=== PATIENT | male | born 1930 | race Caucasian/White ===

== ENCOUNTER 2017-04-09 10:33 | Inpatient (IN) | payer MEDICARE, BC ==
[2017-04-09] MEDS ORDERED: Furosemide 40 MG/4 ML VIAL IVPUSH ONE (12:00)
[2017-04-09] MEDS: Sodium Chloride 0.9% 10 ML Syringe FLUSH PRN ×2 (12:25→20:17)
[2017-04-09 12:54] LABS: CHLORIDE,CL 94 mmol/L (98-107); SODIUM,NA 135 mmol/L (136-145)
[2017-04-09] MEDS ORDERED: Acetaminophen 325 MG Tab PO PRN (14:38)
[2017-04-09] MEDS ORDERED: Potassium Chloride 10 MEQ Tab.ER PO SCH (14:45)
[2017-04-09] MEDS: Furosemide 20 MG/2 ML VIAL IVPUSH SCH (16:13)
[2017-04-09] MEDS: Potassium Chloride 20 MEQ Tab.ER PO SCH (16:13)
[2017-04-09] MEDS ORDERED: Warfarin 2.5 MG Tab PO SCH (20:00)
[2017-04-09] MEDS: Zolpidem 5 MG Tab PO SCH (20:13)
[2017-04-09] MEDS: LORazepam 0.5 MG Tab PO SCH (20:13)
--- NOTE | 2017-04-09 22:00 | PCM.HP ---
H&P History of Present Illness - General Date of Service: 04/09/17 Admit Problem/Dx: Admission Diagnosis/Problem Admission Diagnosis/Problem Congestive heart failure Source of Information: Patient, Family History Limitations: Reports: No Limitations - History of Present Illness Onset of Symptoms: Reports: Gradual Duration of Symptoms: Reports: Day(s): Location: Reports: Other (scrotum ) Associated Symptoms: Reports: Shortness of Breath Other HPI/Comments: 86 yo who present to the clinic today with his brother for follow up and on fluid retention and now with a 1 week hx of increased scrotal swelling. Was seen by myself 1 month ago for leg swelling and CHF. BNP at that time was 744 at [place] he has a. fib and had been initiated on Digoxin for a. fib, he has also been on Atenolol doses for years. Lasix dose was 20 mg BID. Had been seen by Carolee Kuhn earlier this spring and treated for cellulitis. I felt he was having more venous stasis issues and I referred him back to vascular surgery but he has not seen them yet. [facility] increased lasix up to 40 mg BID. He feels the leg swelling is better and he is also using support stockings now but he is still SOB with activity. He did fall also last Wednesday on 04/28 [facility] did admit had at least 1 drink but really just sort of stepped off the curb. He didn't go in for stitches has a cut on the right elbow that home health has been dressing. He is weaker and is using a walker which is new for him. He has a pacemaker and his last echo showed and EF 65 % back in 2013 there were no major valve problems. He is on coumadin. He did hit his head and scraped his left eyebrow with the fall. He has not had headaches or been confused. He did run out of Digoxin on 04/04 and was waiting for his appt today to fill it. He has a hx of prostate cancer with prostatectomy in 2001 no PSA monitoring has been done lately Hx from 03/11 visit An 86-year-old seen today for followup on leg swelling. The patient has been doctoring since February 19 at which point he was diagnosed with cellulitis. He was given Bactrim. He returned on the . I felt it was more venous insufficiency. His Lasix was increased to 20 mg twice daily at that point. He was tried on hydrocortisone cream and then when he saw me on the I continued the increased Lasix. His heart rate was fast so I added digoxin. We put him on triamcinolone cream. He has been using it for a week. He states his legs are still red, but there is no pain. His feet do her with some tingling and burning. He believes that started when the swelling started. He does not have diabetes. He does have prediabetes. He does drink alcohol, like 3 per day, but has been limiting it on my advice due to lower sodiums - Related Data Allergies/Adverse Reactions: Allergies Allergy/AdvReac Type Severity Reaction Status Date / Time naproxen sodium [From Aleve] Allergy Other Verified 08/22/16 10:46 Penicillins Allergy Cannot Verified 08/22/16 10:46 Remember Home Medications: Home Meds Atenolol 100 mg PO DAILY 12/24/13 [History] Furosemide [Lasix] 40 mg PO BID 12/24/13 [History] Zolpidem [Ambien] 10 mg PO BEDTIME 12/24/13 [History] Acetaminophen [Tylenol] 2 tab PO Q6H PRN 07/17/15 [History] Warfarin [Coumadin] 5 mg PO SuTuThSa@20 08/22/16 [History] Digoxin 125 mcg PO DAILY 04/09/17 [History] LORazepam [LORazepam] 0.25 mg PO BEDTIME 04/09/17 [History] Potassium Chloride 20 meq PO DAILY 04/09/17 [History] Warfarin [Coumadin] 2.5 mg PO MoWeFr@20 04/09/17 [History] Past Medical History HEENT History: Reports: Cataract, Hard of Hearing Other HEENT History: middle ear disorder, Cardiovascular History: Reports: Afib, Hypertension, Pacemaker Other Cardiovascular History: hyponatremia, fatigue, Gastrointestinal History: Reports: Diverticulosis, Other (See Below) Other Gastrointestinal History: esophageal stricture, dysphagia, diverticulosis, Genitourinary History: Reports: Prostate Disorder Other Genitourinary History: Prostate Cancer Psychiatric History: Reports: Other (See Below) Other Psychiatric History: insomnia, Endocrine/Metabolic History: Reports: Other (See Below) Other Endocrine/Metabolic History: prediabetes, Oncologic (Cancer) History: Reports: Prostate Dermatologic History: Reports: Urticaria, Other (See Below) Other Dermatologic History: VERY DRY SKIN - Past Surgical History Head Surgeries/Procedures: Reports: None HEENT Surgical History: Reports: Cataract Surgery Cardiovascular Surgical History: Reports: Pacer Other Cardiovascular Surgeries/Procedures: PACEMAKER Respiratory Surgical History: Reports: None Male Surgical History: Reports: Prostatectomy Endocrine Surgical History: Reports: None Other Oncologic Surgeries/Procedures: prostate removed Social & Family History - Family History Dermatologic: Reports: Other (See Below) (his brother has had lots of issues with skin cancer) - Tobacco Use Smoking Status *Q: Former Smoker Years of Tobacco use: 20 Used Tobacco, but Quit: Yes Month Tobacco Last Used: 12 Tobacco Use Comment: Stated he quit smoking around 50 years ago. Second Hand Smoke Exposure: No - Caffeine Use Caffeine Use: Reports: Coffee, Soda - Alcohol Use Days Per Week of Alcohol Use: 7 Number of Drinks Per Day: 1 Total Drinks Per Week: 7 Date of Last Drink: 04/08/17 - Recreational Drug Use Recreational Drug Use: No Drug Use in Last 12 Months: No H&P Review of Systems - Review of Systems: Review Of Systems: See Below General: Reports: Weakness, Weight Gain (he gained like 20 lbs in 6 months) HEENT: Reports: No Symptoms Pulmonary: Reports: Shortness of Breath. Denies: Wheezing, Pleuritic Chest Pain , Cough Cardiovascular: Reports: Dyspnea on Exertion, Orthopnea, Edema. Denies: Chest Pain, Palpitations, Lightheadedness, Syncope Gastrointestinal: Reports: Decreased Appetite, Distension. Denies: Abdominal Pain, Black Stool, Constipation, Diarrhea Genitourinary: Reports: Incontinence, Other (it is hard for him to urinate due to scrotal swelling). Denies: Dysuria, Frequency, Burning, Urgency, Retention Musculoskeletal: Reports: No Symptoms. Denies: Back Pain Skin: Reports: Rash (legs have been red with stasis changes but they are improving ) Psychiatric: Reports: Anxiety Neurological: Reports: Tingling, Difficulty Walking. Denies: Confusion, Dizziness, Headache Hematologic/Lymphatic: Reports: Easy Bleeding (he is on coumadin ) Immunologic: Reports: No Symptoms Exam - Exam Exam: See Below - Vital Signs Vital Signs: Last Vital Signs Temp 98.6 F 04/09/17 16:58 Pulse 89 04/09/17 16:58 Resp 20 04/09/17 16:58 BP 126/71 04/09/17 16:58 Pulse Ox 93 L 04/09/17 16:58 Weight: 97.795 kg - Exam General: Alert, Oriented, Cooperative HEENT: Conjunctiva Clear, EACs Clear, EOMI, Hearing Intact, Posterior Pharynx Clear, Pupils Equal Neck: Supple, Trachea Midline, +2 Carotid Pulse wo Bruit. No: JVD, Thyromegaly Lungs: Normal Respiratory Effort, Decreased Breath Sounds (noted to both bases ) . No: Crackles, Rales, Rhonchi, Wheezing Cardiovascular: Irregular Rhythm, Tachycardia. No: Bradycardia, Systolic Murmur Abdomen: Normal Bowel Sounds, Distention, Other (I did not appreciate any abdominal wall edema or sacral edema, no shifting dullness to suggest significant ascites ). No: Organomegaly, Guarding, Rigidity, Rebound, Tenderness (Male) Exam: Scrotal Swelling, Scrotum Tenderness (L), Scrotum Tenderness (R ) (tenderness to palpation but no significant pain, redness but no warmth ), Other (It was difficult to find the penile meatus and when found there was just a small trickle of urine noted). No: Circumcised, Suprapubic Fullness, Testicular Mass, Urethral Discharge Extremities: Edema (1 + to the mid [place] with support stockings in place) Skin: Warm, Dry, Intact, Rash (stasis changes to both legs ) Neurological: Cranial Nerves Intact, Normal Gait (he did use a walker but was walking ok with it), Normal Speech Neuro Extensive - Mental Status: Alert, Oriented x3, Normal Mood/Affect, Normal Cognition, Memory Intact Psychiatric: Alert, Normal Affect, Normal Mood - Patient Data Lab Results Last 24 hrs: Laboratory Results - last 24 hr 04/09/17 04/09/17 04/09/17 Range/Units 12:15 12:15 12:15 WBC 6.3 (4.0-10.0) x10^3/uL RBC 4.28 L (4.5-6.0) x10^6/uL Hgb 12.6 L (14.0-18.0) g/dL Hct 38.5 L (40.0-52.0) % MCV 90.0 (78.0-93.0) fL MCH 29.4 (26.0-32.0) pg MCHC 32.7 (32.0-36.0) g/dL RDW Coeff of Coy 15.7 H (10.0-15.0) % Plt Count 159 (130-400) x10^3/uL Neut % (Auto) 69.8 (50.0-80.0) % Lymph % (Auto) 8.9 L (25.0-50.0) % [place] % (Auto) 18.0 H (2.0-11.0) % Eos % (Auto) 2.5 (0.0-4.0) % Baso % (Auto) 0.8 (0.2-1.2) % PT (10.0-12.8) SEC INR (2.0-3.5) Sodium 135 L (136-145) mmol/L Potassium 3.4 L (3.5-5.1) mmol/L Chloride 94 L (98-107) mmol/L Carbon Dioxide 38 H (21-32) mmol/L BUN 11 (7-18) mg/dL Creatinine 1.0 (0.70-1.30) mg/dL Est Cr Clr Drug Dosing 48.66 mL/min Estimated GFR (MDRD) > 60 Glucose 110 H (74-106) mg/dL Calcium 8.8 (8.5-10.1) mg/dL Magnesium (1.8-2.4) mg/dL Troponin I < 0.017 (<=0.056) ng/mL B-Natriuretic Peptide 442 (<=450) pg/mL Albumin 3.1 L (3.4-5.0) g/dL 04/09/17 04/09/17 Range/Units 12:15 12:15 WBC (4.0-10.0) x10^3/uL RBC (4.5-6.0) x10^6/uL Hgb (14.0-18.0) g/dL Hct (40.0-52.0) % MCV (78.0-93.0) fL MCH (26.0-32.0) pg MCHC (32.0-36.0) g/dL RDW Coeff of Coy (10.0-15.0) % Plt Count (130-400) x10^3/uL Neut % (Auto) (50.0-80.0) % Lymph % (Auto) (25.0-50.0) % [place] % (Auto) (2.0-11.0) % Eos % (Auto) (0.0-4.0) % Baso % (Auto) (0.2-1.2) % PT 29.2 H (10.0-12.8) SEC INR 2.6 (2.0-3.5) Sodium (136-145) mmol/L Potassium (3.5-5.1) mmol/L Chloride (98-107) mmol/L Carbon Dioxide (21-32) mmol/L BUN (7-18) mg/dL Creatinine (0.70-1.30) mg/dL Est Cr Clr Drug Dosing mL/min Estimated GFR (MDRD) Glucose (74-106) mg/dL Calcium (8.5-10.1) mg/dL Magnesium 1.9 (1.8-2.4) mg/dL Troponin I (<=0.056) ng/mL B-Natriuretic Peptide (<=450) pg/mL Albumin (3.4-5.0) g/dL Result Diagrams: 04/09/17 12:15 04/09/17 12:15 Imaging Impressions Last 24 hrs: CXR showed small bilateral pleural effusion but no pulmonary edema or infiltrates. EKG INTERPRETATION EKG Date: 04/09/17 Rhythm: A-Fib Rate (Beats/Min): 81 Comparison: Change From Previous EKG (he was in a sinus rhythm before) *Q Meaningful Use (ADM) - VTE *Q VTE Criteria *Q: VTE Mechanical Contraindications *Q: At Risk for Falls - VTE Risk Assess *Q Each Risk Factor Represents 3 Points: Age 75 Years or Greater Total Score 3 Point Risk Factors: 3 - Stroke *Q Stroke Criteria *Q: - AMI *Q AMI Criteria *Q: - Problem List (1) Afib, Atrial fibrillation SNOMED Code(s): 99070173 ICD Code: I48.91 - UNSPECIFIED ATRIAL FIBRILLATION Status: Chronic Priority: High Current Visit: Yes (2) Diastolic CHF, acute on chronic SNOMED Code(s): 728667757, 285272354 ICD Code: I50.33 - ACUTE ON CHRONIC DIASTOLIC (CONGESTIVE) HEART FAILURE Status: Acute Priority: High Current Visit: Yes (3) Scrotal edema SNOMED Code(s): 41862346 ICD Code: N50.89 - OTHER SPECIFIED DISORDERS OF THE MALE GENITAL ORGANS Status: Acute Priority: High Current Visit: Yes (4) History of prostate cancer SNOMED Code(s): 311165563 ICD Code: Z85.46 - PERSONAL HISTORY OF MALIGNANT NEOPLASM OF PROSTATE Status: Chronic Priority: Medium Current Visit: No (5) Anticoagulated on Coumadin SNOMED Code(s): 38861842 ICD Code: Z51.81 - ENCOUNTER FOR THERAPEUTIC DRUG LEVEL MONITORING; Z79.01 - RESIDENTIAL (CURRENT) USE OF ANTICOAGULANTS Status: Chronic Priority: Medium Current Visit: Yes (6) Hypokalemia SNOMED Code(s): 29329049 ICD Code: E87.6 - HYPOKALEMIA Status: Acute Priority: High Current Visit: Yes (7) Prediabetes SNOMED Code(s): 891066821 ICD Code: R73.03 - PREDIABETES Status: Chronic Priority: Medium Current Visit: Yes (8) Essential hypertension SNOMED Code(s): 61552219 ICD Code: I10 - ESSENTIAL (PRIMARY) HYPERTENSION Status: Chronic Priority : Medium Current Visit: Yes Problem List Initiated/Reviewed/Updated: Yes Orders Last 24hrs: Active Orders 24 hr Category Date Time Status Patient Status [ADT] Routine ADT 04/09/17 10:45 Active Antiembolic Devices [RC] Care 04/09/17 11:58 Active Antiembolic Devices [RC] PER UNIT ROUTINE Care 04/09/17 16:52 Active Cardiac Monitoring [RC] 06,10,14,18,22,02 Care 04/09/17 11:57 Active Height and Weight [RC] Care 04/09/17 11:56 Active Insert Nolasco Catheter [Insert Urinary Catheter] [OM.PC] Care 04/09/17 12:15 Ordered Q24H Intake and Output [RC] , Care 04/09/17 11:57 Active Oxygen Therapy [RC] Care 04/09/17 11:51 Active Up With Assistance [RC] , Care 04/09/17 11:56 Active Urinary Catheter Assessment [RC] .PRN Care 04/09/17 12:05 Active VTE/DVT Education [RC] .PRN Care 04/09/17 11:51 Active Vital Signs [RC] 06,10,14,18,22,02 Care 04/09/17 11:51 Active OT Evaluation and Treatment [CONS] Routine Cons 04/09/17 12:03 Active PT Evaluation and Treatment [CONS] Routine Cons 04/09/17 11:51 Active 2 Gram Sodium Diet [DIET] Diet 04/09/17 Lunch Active CXR [Chest 2V] [CR] Routine Exams 04/09/17 11:59 Taken BASIC METABOLIC PANEL,BMP [CHEM] AM Lab 04/10/17 05:15 Ordered CBC WITH AUTO DIFF [HEME] AM Lab 04/10/17 05:15 Ordered INR,PT,PROTHROMBIN TIME [COAG] Routine Lab 04/10/17 07:00 Ordered MG [MAGNESIUM] [CHEM] Routine Lab 04/10/17 07:00 Ordered Acetaminophen [Tylenol] Med 04/09/17 14:38 Active 650 mg PO Q6H PRN Digoxin [Lanoxin] Med 04/10/17 08:00 Active 125 mcg PO DAILY Furosemide [Lasix] Med 04/09/17 16:00 Active 20 mg IVPUSH BIDDIURETIC LORazepam [Ativan] Med 04/09/17 20:00 Active 0.25 mg PO BEDTIME Potassium Chloride [Klor-Con M20] Med 04/09/17 15:30 Active 20 meq PO DAILY Sodium Chloride 0.9% [Saline Flush] Med 04/09/17 11:56 Active 10 ml FLUSH ASDIRECTED PRN Warfarin [Coumadin] Med 04/09/17 20:00 Active 2.5 mg PO MoWeFr@20 Warfarin [Coumadin] Med 04/10/17 20:00 Active 5 mg PO SuTuThSa@20 Zolpidem [Ambien] Med 04/09/17 20:00 Active 10 mg PO BEDTIME Antiembolic Hose [OM.PC] Per Unit Routine Oth 04/09/17 11:57 Ordered Peripheral IV Insertion Adult [OM.PC] Routine Oth 04/09/17 11:56 Ordered Sequential Compression Device [OM.PC] Routine Oth 04/09/17 16:52 Ordered Resuscitation Status Routine Resus Stat 04/09/17 11:51 Ordered Medication Orders Acetaminophen (Tylenol) 650 mg PO Q6H PRN PRN Reason: Pain Digoxin (Lanoxin) 125 mcg PO DAILY [facility] Furosemide (Lasix) 20 mg IVPUSH BIDDIURETIC [facility] Last Admin: 04/09/17 16:13 Dose: 20 mg Lorazepam (Ativan) 0.25 mg PO BEDTIME [facility] Last Admin: 04/09/17 20:13 Dose: 0.25 mg Potassium Chloride (Klor-Con M20) 20 meq PO DAILY [facility] Last Admin: 04/09/17 16:13 Dose: 20 meq Sodium Chloride (Saline Flush) 10 ml FLUSH ASDIRECTED PRN PRN Reason: Keep Vein Open Last Admin: 04/09/17 20:17 Dose: 10 ml Admin: 04/09/17 12:25 Dose: 10 ml Warfarin Sodium (Coumadin) 2.5 mg PO MoWeFr@20 [facility] Last Admin: 04/09/17 20:13 Dose: 2.5 mg Warfarin Sodium (Coumadin) 5 mg PO SuTuThSa@20 [facility] Zolpidem Tartrate (Ambien) 10 mg PO BEDTIME [facility] Last Admin: 04/09/17 20:13 Dose: 10 mg Assessment/Plan Comment:: 1. Acute on Chronic diastolic CHF exacerbation, know EF 65 % in 2013. Patient has already improved his BNP with outpatient diuresis however at this point he is still SOB and has significant scrotal edema 2. Atrial fibrillation 3. Mild hypokalemia 4. Scrotal edema 5. Mild urinary retention less than 200 ml 6. Venous insufficiency (will follow up with vascular surgery outpatient) 7. Anxiety 8. Insomnia 9. Regular alcohol use 10. Probably depression related to worsening health status 11. Essential hypertension 12. Remote hx of prostate cancer 14. Hyponatremia mild Plan: Admit to acute cares with IV diuresis 40 mg given IV x 1 (patient did not take oral lasix this AM) 20 mg IV BID scheduled Repeat labs in AM, increase K supplements to 20 BID Some PVCs noted on tele we will check mag level Stop Atenolol and trial of Toprol 50 mg daily Consider stopping digoxin if rate control is ok, could go up on the Toprol as BNP not significantly elevated Outpatient echo ordered Consider abdominal imaging to look for obstructive causes of scrotal edema if edema doesn't improve with diuresis Attempt to place nolasco once swelling improves for strict I and O's and management of incontinence Monitor with Tele Code level 1 He is therapeutic on coumadin for DVT prophylaxis
[2017-04-10] MEDS: Digoxin 125 MCG Tab PO SCH (07:59)
[2017-04-10] MEDS: Potassium Chloride 20 MEQ Tab.ER PO SCH (07:59)
[2017-04-10] MEDS: Metoprolol Succinate 50 MG Tab.ER PO SCH (07:59)
[2017-04-10] MEDS: Furosemide 20 MG/2 ML VIAL IVPUSH SCH (08:00)
[2017-04-10 08:05] LABS: CHLORIDE,CL 97 mmol/L (98-107); SODIUM,NA 138 mmol/L (136-145)
[2017-04-10] MEDS: Sodium Chloride 0.9% 10 ML Syringe FLUSH PRN (08:08)
--- NOTE | 2017-04-10 08:33 | PCM.PN ---
- General Info Date of Service: 04/10/17 Subjective Update: Patient states he is overall feeling much better today. He denies any shortness of breath and did not develop any chest pain, cough, fever, or chills overnight. He has not been able to see his scrotum but nursing staff note this is significantly improved and is about 1/2 the size it was yesterday. - Review of Systems General: Reports: No Symptoms HEENT: Reports: no symptoms Pulmonary: Reports: no symptoms Cardiovascular: Reports: No Symptoms Gastrointestinal: Reports: No symptoms Genitourinary: Reports: no symptoms Musculoskeletal: Reports: no symptoms Skin: Reports: no symptoms - Patient Data Vitals - most recent: Last Vital Signs Temp 36.6 C 04/10/17 06:00 Pulse 71 04/10/17 07:59 Resp 18 04/10/17 06:00 BP 151/86 H 04/10/17 07:59 Pulse Ox 93 L 04/10/17 06:00 Weight - most recent: 97.795 kg I&O - last 24 hours: Intake & Output 04/09/17 04/10/17 04/10/17 22:59 06:59 14:59 Output Total 1350 300 Balance -1350 -300 Lab Results last 24 hrs: Laboratory Results - last 24 hr 04/09/17 04/09/17 04/09/17 Range/Units 12:15 12:15 12:15 WBC 6.3 (4.0-10.0) x10^3/uL RBC 4.28 L (4.5-6.0) x10^6/uL Hgb 12.6 L (14.0-18.0) g/dL Hct 38.5 L (40.0-52.0) % MCV 90.0 (78.0-93.0) fL MCH 29.4 (26.0-32.0) pg MCHC 32.7 (32.0-36.0) g/dL RDW Coeff of Coy 15.7 H (10.0-15.0) % Plt Count 159 (130-400) x10^3/uL Neut % (Auto) 69.8 (50.0-80.0) % Lymph % (Auto) 8.9 L (25.0-50.0) % [place] % (Auto) 18.0 H (2.0-11.0) % Eos % (Auto) 2.5 (0.0-4.0) % Baso % (Auto) 0.8 (0.2-1.2) % PT (10.0-12.8) SEC INR (2.0-3.5) Sodium 135 L (136-145) mmol/L Potassium 3.4 L (3.5-5.1) mmol/L Chloride 94 L (98-107) mmol/L Carbon Dioxide 38 H (21-32) mmol/L BUN 11 (7-18) mg/dL Creatinine 1.0 (0.70-1.30) mg/dL Est Cr Clr Drug Dosing 48.66 mL/min Estimated GFR (MDRD) > 60 Glucose 110 H (74-106) mg/dL Calcium 8.8 (8.5-10.1) mg/dL Magnesium (1.8-2.4) mg/dL Troponin I < 0.017 (<=0.056) ng/mL B-Natriuretic Peptide 442 (<=450) pg/mL Albumin 3.1 L (3.4-5.0) g/dL 04/09/17 04/09/17 04/10/17 Range/Units 12:15 12:15 07:17 WBC (4.0-10.0) x10^3/uL RBC (4.5-6.0) x10^6/uL Hgb (14.0-18.0) g/dL Hct (40.0-52.0) % MCV (78.0-93.0) fL MCH (26.0-32.0) pg MCHC (32.0-36.0) g/dL RDW Coeff of Coy (10.0-15.0) % Plt Count (130-400) x10^3/uL Neut % (Auto) (50.0-80.0) % Lymph % (Auto) (25.0-50.0) % [place] % (Auto) (2.0-11.0) % Eos % (Auto) (0.0-4.0) % Baso % (Auto) (0.2-1.2) % PT 29.2 H (10.0-12.8) SEC INR 2.6 (2.0-3.5) Sodium 138 (136-145) mmol/L Potassium 3.3 L (3.5-5.1) mmol/L Chloride 97 L (98-107) mmol/L Carbon Dioxide 39 H (21-32) mmol/L BUN 10 (7-18) mg/dL Creatinine 0.9 (0.70-1.30) mg/dL Est Cr Clr Drug Dosing 54.06 mL/min Estimated GFR (MDRD) > 60 Glucose 97 (74-106) mg/dL Calcium 9.1 (8.5-10.1) mg/dL Magnesium 1.9 (1.8-2.4) mg/dL Troponin I (<=0.056) ng/mL B-Natriuretic Peptide (<=450) pg/mL Albumin (3.4-5.0) g/dL /05/20 Range/Units 07:17 WBC (4.0-10.0) x10^3/uL RBC (4.5-6.0) x10^6/uL Hgb (14.0-18.0) g/dL Hct (40.0-52.0) % MCV (78.0-93.0) fL MCH (26.0-32.0) pg MCHC (32.0-36.0) g/dL RDW Coeff of Coy (10.0-15.0) % Plt Count (130-400) x10^3/uL Neut % (Auto) (50.0-80.0) % Lymph % (Auto) (25.0-50.0) % [place] % (Auto) (2.0-11.0) % Eos % (Auto) (0.0-4.0) % Baso % (Auto) (0.2-1.2) % PT (10.0-12.8) SEC INR (2.0-3.5) Sodium (136-145) mmol/L Potassium (3.5-5.1) mmol/L Chloride (98-107) mmol/L Carbon Dioxide (21-32) mmol/L BUN (7-18) mg/dL Creatinine (0.70-1.30) mg/dL Est Cr Clr Drug Dosing mL/min Estimated GFR (MDRD) Glucose (74-106) mg/dL Calcium (8.5-10.1) mg/dL Magnesium 2.1 (1.8-2.4) mg/dL Troponin I (<=0.056) ng/mL B-Natriuretic Peptide (<=450) pg/mL Albumin (3.4-5.0) g/dL Med Orders - Current: Current Medications Acetaminophen (Tylenol) 650 mg PO Q6H PRN PRN Reason: Pain Digoxin (Lanoxin) 125 mcg PO DAILY [facility] Last Admin: 04/10/17 07:59 Dose: 125 mcg Furosemide (Lasix) 40 mg PO BIDDIURETIC [facility] Lorazepam (Ativan) 0.25 mg PO BEDTIME [facility] Last Admin: 04/09/17 20:13 Dose: 0.25 mg Metoprolol Succinate (Toprol Xl) 50 mg PO DAILY [facility] Last Admin: 04/10/17 07:59 Dose: 50 mg Potassium Chloride (Klor-Con M20) 20 meq PO DAILY [facility] Last Admin: 04/10/17 07:59 Dose: 20 meq Sodium Chloride (Saline Flush) 10 ml FLUSH ASDIRECTED PRN PRN Reason: Keep Vein Open Last Admin: 04/10/17 08:08 Dose: 10 ml Warfarin Sodium (Coumadin) 2.5 mg PO MoWeFr@20 [facility] Last Admin: 04/09/17 20:13 Dose: 2.5 mg Warfarin Sodium (Coumadin) 5 mg PO SuTuThSa@20 [facility] Zolpidem Tartrate (Ambien) 10 mg PO BEDTIME [facility] Last Admin: 04/09/17 20:13 Dose: 10 mg Discontinued Medications Furosemide (Lasix) 40 mg IVPUSH NOW ONE Stop: 04/09/17 12:01 Last Admin: 04/09/17 12:24 Dose: 40 mg Furosemide (Lasix) 20 mg IVPUSH BIDDIURETIC [facility] Last Admin: 04/10/17 08:00 Dose: 20 mg - Exam General: alert, cooperative, no acute distress HEENT: Mucous membr. moist/pink Neck: supple, no thyromegaly. No: lymphadenopathy Lungs: Clear to auscultation (besides the decrease in the lower lobes), Normal respiratory effort, Decreased breath sounds (at the bases bilaterally) Cardiovascular: Regular Rate, No Murmurs, Irregular Rhythm Abdomen: bowel sounds present, soft, no tenderness, no distension (Male) Exam: Scrotal Swelling (still has some today but by nursing report is much improved) Extremities: normal pulses, edema (1+ bilaterally) Skin: warm, dry, intact - Problem List & Annotations (1) Diastolic CHF, acute on chronic SNOMED Code(s): 854972871, 633859986 Code(s): I50.33 - ACUTE ON CHRONIC DIASTOLIC (CONGESTIVE) HEART FAILURE Status: Acute Priority: High Current Visit: Yes Annotation/Comment:: - Doing well this am. - He will get an IV dose of lasix this morning, then I will transition him back to his 40 mg PO BID. - He has not required any oxygen and respiratory status is stable. (2) Hypokalemia SNOMED Code(s): 28105586 Code(s): E87.6 - HYPOKALEMIA Status: Chronic Priority: High Current Visit: Yes Annotation/Comment:: - This is acute on chronic. - Will give additional PO dosing today and recheck tomorrow. (3) Scrotal edema SNOMED Code(s): 31563645 Code(s): N50.89 - OTHER SPECIFIED DISORDERS OF THE MALE GENITAL ORGANS Status: Acute Priority: High Current Visit: Yes Annotation/Comment:: - Also improved but not resolved. - No further work-up at this time. - Will recheck tomorrow. (4) Afib, Atrial fibrillation SNOMED Code(s): 39151815 Code(s): I48.91 - UNSPECIFIED ATRIAL FIBRILLATION Status: Chronic Priority: High Current Visit: Yes Annotation/Comment:: - Rates overall controlled ok. - Continue digoxin and toprol. (5) Anticoagulated on Coumadin SNOMED Code(s): 95985937 Code(s): Z51.81 - ENCOUNTER FOR THERAPEUTIC DRUG LEVEL MONITORING; Z79.01 - PRISON (CURRENT) USE OF ANTICOAGULANTS Status: Chronic Priority: Medium Current Visit: Yes Annotation/Comment:: - INR pending this morning. - Warfarin continued at home doses. - Problem List Review Problem List Initiated/Reviewed/Updated: Yes - My Orders Last 24 Hours: My Active Orders 04/10/17 16:00 Furosemide [Lasix] 40 mg PO BIDDIURETIC 04/11/17 05:11 BMP [BASIC METABOLIC PANEL,BMP] [CHEM] Routine - Assessment Assessment:: 86 yo male admitted for diuresis due to difficulty achieving this as an outpatient. He is doing much better this am. - Plan Plan:: Patient will remain on acute cares today. I do anticipate that he will be able to be dismissed tomorrow. Will transition from IV to PO lasix today. Otherwise, see details under problems listed above. Code level 1. He is therapeutic on coumadin for DVT prophylaxis.
[2017-04-10] MEDS: Potassium Chloride 10 MEQ Tab.ER PO SCH ×2 (09:56→18:01)
[2017-04-10] MEDS: Furosemide 40 MG Tab PO SCH (15:58)
[2017-04-10] MEDS ORDERED: Warfarin 5 MG Tab PO SCH (20:00)
[2017-04-10] MEDS: Zolpidem 5 MG Tab PO SCH (20:11)
[2017-04-10] MEDS: LORazepam 0.5 MG Tab PO SCH (20:11)
[2017-04-11 07:59] LABS: CHLORIDE,CL 99 mmol/L (98-107); SODIUM,NA 139 mmol/L (136-145)
[2017-04-11] MEDS: Potassium Chloride 20 MEQ Tab.ER PO SCH (09:38)
[2017-04-11] MEDS: Metoprolol Succinate 50 MG Tab.ER PO SCH (09:39)
[2017-04-11] MEDS: Furosemide 40 MG Tab PO SCH (09:39)
[2017-04-11] MEDS: Digoxin 125 MCG Tab PO SCH (09:40)
--- NOTE | 2017-04-11 09:45 | PCM.DCSUM1 ---
Discharge Summary - Hospital Course Brief History: Mr. Chaney is an 86 yo male who was admitted for clinic for severe symptomatic scrotal edema. - Discharge Data Discharge Date: 04/11/17 Discharge Disposition: Home, Self-Care 01 Condition: Good - Discharge Diagnosis/Problem(s) (1) Diastolic CHF, acute on chronic SNOMED Code(s): 591743524, 305544082 ICD Code: I50.33 - ACUTE ON CHRONIC DIASTOLIC (CONGESTIVE) HEART FAILURE Status: Acute Priority: High Current Visit: Yes Problem Details: His CHF was initially managed with IV lasix. After improvement in symptoms, he was transitioned back to PO lasix yesterday. He has done well since then. I/O balance still negative and his weight is down further. He has not required any oxygen and respiratory status is stable. (2) Hypokalemia SNOMED Code(s): 18847184 ICD Code: E87.6 - HYPOKALEMIA Status: Chronic Priority: High Current Visit: Yes Problem Details: This is acute on chronic. It has been overall stable since hospital admission. Will plan to d/c him on higher PO dosing and recheck in hospital follow-up. (3) Scrotal edema SNOMED Code(s): 87368039 ICD Code: N50.89 - OTHER SPECIFIED DISORDERS OF THE MALE GENITAL ORGANS Status: Acute Priority: High Current Visit: Yes Problem Details: Stable from yesterday. He remains asymptomatic. No further work-up at this time. (4) Afib, Atrial fibrillation SNOMED Code(s): 18785625 ICD Code: I48.91 - UNSPECIFIED ATRIAL FIBRILLATION Status: Chronic Priority: High Current Visit: Yes Problem Details: Rates overall controlled. His digoxin and toprol were continued throughout his hospitalization without any incident. (5) Anticoagulated on Coumadin SNOMED Code(s): 87839056 ICD Code: Z51.81 - ENCOUNTER FOR THERAPEUTIC DRUG LEVEL MONITORING; Z79.01 - NURSING HOME (CURRENT) USE OF ANTICOAGULANTS Status: Chronic Priority: Medium Current Visit: Yes Problem Details: INR was not done today. He has been on his home warfarin dosing. He likely should have an INR tomorrow, 04/12. - Patient Summary/Data Operative Procedure(s) Performed: none Complications: none Consults: Consultations 04/09/17 11:51 PT Evaluation and Treatment [CONS] Routine 04/09/17 12:03 OT Evaluation and Treatment [CONS] Routine Labs Pending at D/C: BMP at follow-up Recommended Follow-up Testing/Procedures: none Planned Operative Procedure(s) after DC: none Hospital Course: See details under problems above. His symptoms rapidly improved with IV lasix and remained absent after transitioning to PO lasix. He is prepared for dismissal today. - Patient Instructions Diet: Heart Healthy Diet - Discharge Plan Home Medications: Home Meds Albuterol [Ventolin HFA] 2 puff PO Q6HR PRN 04/10/17 [History] Alendronate Sodium [Fosamax] 70 mg PO WEEKLY 04/10/17 [History] Budesonide/Formoterol [Symbicort 160-4.5 MCG] 2 puff PO BID 04/10/17 [History] Calcium Citrate/Vitamin D3 [Calcium Citrate + D] 1 tab PO BID 04/10/17 [History] Latanoprost [Xalatan 0.005% Ophth Soln] 1 drop EYEBOTH DAILY 04/10/17 [History] Montelukast [Singulair] 10 mg PO BEDTIME 04/10/17 [History] Vit C/Vit E Ac/Lut/Mineral 1 [Prosight with Lutein] 1 each PO DAILY 04/10/17 [ History] Acetaminophen [Tylenol] 650 mg PO Q6H PRN #0 tablet 04/11/17 [Rx] Digoxin [Lanoxin] 125 mcg PO DAILY tablet 04/11/17 [Rx] Furosemide [Lasix] 40 mg PO BIDDIURETIC tablet 04/11/17 [Rx] LORazepam [Ativan] 0.25 mg PO BEDTIME tablet 04/11/17 [Rx] Metoprolol Succinate [Toprol XL] 50 mg PO DAILY tab.er 04/11/17 [Rx] Potassium Chloride 20 meq PO BID #0 04/11/17 [Rx] Warfarin [Coumadin] 2.5 mg PO MoWeFr@20 tablet 04/11/17 [Rx] Warfarin [Coumadin] 5 mg PO SuTuThSa@20 tablet 04/11/17 [Rx] Zolpidem [Ambien] 10 mg PO BEDTIME tablet 04/11/17 [Rx] - Discharge Summary/Plan Comment DC Time >30 min.: No - General Info Date of Service: 04/11/17 Subjective Update: Patient is feeling well this am. No shortness of breath or chest pain. Scrotum remains much less edematous than on admission. He is prepared for dismissal today. - Review of Systems General: Reports: No Symptoms HEENT: Reports: no symptoms Pulmonary: Reports: no symptoms Cardiovascular: Reports: No Symptoms Gastrointestinal: Reports: No symptoms Genitourinary: Reports: no symptoms Musculoskeletal: Reports: no symptoms Skin: Reports: no symptoms - Patient Data Vitals - Most Recent: Last Vital Signs Temp 36.4 C 04/11/17 06:00 Pulse 85 04/11/17 06:00 Resp 14 04/11/17 06:00 BP 142/68 H 04/11/17 06:00 Pulse Ox 89 L 04/11/17 06:00 Weight - Most Recent: 96.343 kg I&O - Last 24 hours: Intake & Output 04/10/17 04/11/17 04/11/17 22:59 06:59 14:59 Intake Total 360 Output Total 1550 250 Balance -1190 -250 Lab Results - Last 24 hrs: Laboratory Results - last 24 hr 04/11/17 Range/Units 07:25 Sodium 139 (136-145) mmol/L Potassium 3.4 L (3.5-5.1) mmol/L Chloride 99 (98-107) mmol/L Carbon Dioxide 37 H (21-32) mmol/L BUN 8 (7-18) mg/dL Creatinine 0.8 (0.70-1.30) mg/dL Est Cr Clr Drug Dosing 60.82 mL/min Estimated GFR (MDRD) > 60 Glucose 98 (74-106) mg/dL Calcium 8.7 (8.5-10.1) mg/dL Med Orders - Current: Current Medications Acetaminophen (Tylenol) 650 mg PO Q6H PRN PRN Reason: Pain Digoxin (Lanoxin) 125 mcg PO DAILY [facility] Last Admin: 04/10/17 07:59 Dose: 125 mcg Furosemide (Lasix) 40 mg PO BIDDIURETIC [facility] Last Admin: 04/10/17 15:58 Dose: 40 mg Lorazepam (Ativan) 0.25 mg PO BEDTIME [facility] Last Admin: 04/10/17 20:11 Dose: 0.25 mg Metoprolol Succinate (Toprol Xl) 50 mg PO DAILY [facility] Last Admin: 04/10/17 07:59 Dose: 50 mg Potassium Chloride (Klor-Con M20) 20 meq PO DAILY [facility] Last Admin: 04/10/17 07:59 Dose: 20 meq Sodium Chloride (Saline Flush) 10 ml FLUSH ASDIRECTED PRN PRN Reason: Keep Vein Open Last Admin: 04/10/17 08:08 Dose: 10 ml Warfarin Sodium (Coumadin) 2.5 mg PO MoWeFr@20 [facility] Last Admin: 04/09/17 20:13 Dose: 2.5 mg Warfarin Sodium (Coumadin) 5 mg PO SuTuThSa@20 [facility] Last Admin: 04/10/17 20:11 Dose: 5 mg Zolpidem Tartrate (Ambien) 10 mg PO BEDTIME [facility] Last Admin: 04/10/17 20:11 Dose: 10 mg Discontinued Medications Furosemide (Lasix) 40 mg IVPUSH NOW ONE Stop: 04/09/17 12:01 Last Admin: 04/09/17 12:24 Dose: 40 mg Furosemide (Lasix) 20 mg IVPUSH BIDDIURETIC [facility] Last Admin: 04/10/17 08:00 Dose: 20 mg Potassium Chloride (Klor-Con 10) 40 meq PO BIDMEALS [facility] Stop: 04/10/17 18:01 Last Admin: 04/10/17 18:01 Dose: 40 meq - Exam General: Reports: alert, oriented, cooperative, no acute distress HEENT: Reports: Mucous membr. moist/pink Neck: Reports: supple, no thyromegaly. Denies: lymphadenopathy Lungs: Reports: Clear to auscultation, Normal respiratory effort Cardiovascular: Reports: Regular Rate, No Murmurs, Irregular Rhythm Abdomen: Reports: bowel sounds present, soft, no tenderness, no distension (Male) Exam: Scrotal Swelling (stable from yesterday) Extremities: Reports: normal pulses, edema (1+ bilaterally) Skin: Reports: warm, dry, intact *Q Meaningful Use (DIS) - VTE *Q VTE Criteria *Q: VTE Mechanical Contraindications *Q: At Risk for Falls - Stroke *Q Stroke Criteria *Q: - AMI *Q AMI Criteria *Q:
[2017-04-11 13:58] VITALS: BP 132/73
== END 2017-04-11 14:10 | disposition home or self-care (01) | DRG 729 ==
LOC: VM.MS 10:45
PROVIDERS: ADMIT Internal Medicine; ATTEND Internal Medicine
DX: N50.89 Other specified disorders of the male genital organs (principal); I50.33 Acute on chronic diastolic (congestive) heart failure; E87.1 Hypo-osmolality and hyponatremia; I11.0 Hypertensive heart disease with heart failure; I48.2 Chronic atrial fibrillation; E87.6 Hypokalemia; R33.9 Retention of urine, unspecified; I87.2 Venous insufficiency (chronic) (peripheral); Z85.46 Personal history of malignant neoplasm of prostate; Z51.81 Encounter for therapeutic drug level monitoring; Z79.899 Other long term (current) drug therapy; R73.03 Prediabetes; F41.9 Anxiety disorder, unspecified; G47.00 Insomnia, unspecified; Z72.89 Other problems related to lifestyle; F32.9 Major depressive disorder, single episode, unspecified; Z95.0 Presence of cardiac pacemaker; Z88.0 Allergy status to penicillin; Z88.6 Allergy status to analgesic agent; Z87.891 Personal history of nicotine dependence; H91.90 Unspecified hearing loss, unspecified ear
CPT/HCPCS: 36415; 71020; 80048; 82040; 83735; 83880; 84484; 85025; 85610; 93005; 94760; 97165-GO; A9270-GY; J1940; J7050